=== PATIENT | female | born 2005 | race Caucasian/White ===

== ENCOUNTER 2025-02-27 09:43 | Day surgery (SDC) | payer BC ==
[2025-02-26 13:10] VITALS: BMI 34.5
[2025-02-26 14:26] LABS: Hematocrit 39.8 % (34.9-44.5); Hemoglobin 13.2 g/dL (12.0-15.5); Mean Corpuscular Hemoglobin 29.1 pg (27.0-33.0); Mean Corpuscular Volume 87.7 fL (81.6-98.3); Platelet Count 336 10x3/uL (150-450); Red Blood Cell (RBC) Count 4.54 10x6/uL (3.90-5.03); White Blood Cell (WBC) Count 7.74 10x3/uL (3.5-10.5)
[2025-02-27] MEDS ORDERED: Tranexamic Acid 1,000 MG/10 ML VIAL ONE (11:11)
[2025-02-27] MEDS ORDERED: Methylergonovine 0.2 MG/ML VIAL ONE (11:11)
[2025-02-27] MEDS ORDERED: Carboprost 250 MCG/ML AMP ONE (11:11)
[2025-02-27] MEDS ORDERED: CEFAZOLIN 2 GM VIAL ONE (11:21)
[2025-02-27] MEDS ORDERED: Ketorolac Tromethamine 30 MG (1 mL) VIAL ONE (11:22)
[2025-02-27] MEDS ORDERED: PROPOFOL 20 ML ONE ×2 (11:22→12:31)
[2025-02-27] MEDS ORDERED: Ondansetron PF 4 MG/2 ML Vial ONE (11:22)
[2025-02-27] MEDS ORDERED: Lidocaine 1% PF 5 ML VIAL ONE (11:22)
[2025-02-27] MEDS ORDERED: Glycopyrrolate 0.2 MG/ML 5 ML SYRINGE ONE (12:21)
== END 2025-02-27 15:30 | disposition home or self-care (01) ==
LOC: CSHSDC 09:43
PROVIDERS: ATTEND Student in an Organized Health Care Education/Training Program
PROC: 10D17ZZ Extraction of Products of Conception, Retained, Via Natural or Artificial Opening (ICD-10-PCS; principal; 2025-02-27)
DX: O03.4 Incomplete spontaneous abortion without complication (principal); O34.80 Maternal care for other abnormalities of pelvic organs, unspecified trimester; N83.201 Unspecified ovarian cyst, right side; Z3A.00 Weeks of gestation of pregnancy not specified
CPT/HCPCS: 36415; 85027; 86850; 86900; 86901; 88305; J1100; J1885; J2210; J2250; J2405; J2704; J3010; J3490